=== PATIENT | male | born 1945 | race Caucasian/White ===

== ENCOUNTER 2018-07-05 01:35 | Inpatient (IN) | payer OTHER ==
[~2018-07-05] VITALS: Ht 165.1 cm; Wt 52.6 kg
--- NOTE | 2018-07-05 01:35 | NUR ---
Pt placed in bed 4 by EMS.
--- NOTE | 2018-07-05 01:40 | NUR ---
PT BIBA C/O HIGH BLOOD PRESSURE. PT STATES HE WAS AT HOME AND FELT LIKE HIS BP WAS HIGH, SOB X3 WEEKS. PT STATES 0/10 PAIN, DENIES CP. DENIES FEVER OR CHILLS. --PT ACTING APPROPRIATLY, SPEAKING IN CLEAR AND COMPLETE SENTENCES. PT ATTATCHED TO BEDSIDE INDUSTRIAL ROOFER HELPER, AND PLACED ON 2L NC. EQUAL HAND LITHOSTRIPPER STRENGTH BL. ADELAIDA SOUSA AWARE OF PT STATUS. WILL CONINTUE TO MONITOR. PMH: HTN Addendum: 07/05/18 at 0205 by [email or web address] PT BIBA C/O HIGH BLOOD PRESSURE. PT STATES HE WAS AT HOME, FELT DIZZY AND THOUGHT HIS BP WAS HIGH, SOB X3 WEEKS. PT STATES 0/10 PAIN, DENIES CP. DENIES FEVER OR CHILLS. --PT ACTING APPROPRIATLY, SPEAKING IN CLEAR AND COMPLETE SENTENCES. PT ATTATCHED TO BEDSIDE INDUSTRIAL ROOFER HELPER, AND PLACED ON 2L NC. EQUAL HAND LITHOSTRIPPER STRENGTH BL. ADELAIDA SOUSA AWARE OF PT STATUS. WILL CONINTUE TO MONITOR. PMH: HTN Addendum: 07/05/18 at 0243 by [email or web address] PT BIBA C/O HIGH BLOOD PRESSURE. PT STATES HE WAS AT HOME, FELT DIZZY AND THOUGHT HIS BP WAS HIGH, SOB X3 WEEKS. PT STATES 0/10 PAIN, DENIES CP. DENIES FEVER OR CHILLS. --PT ACTING APPROPRIATLY, SPEAKING IN CLEAR AND COMPLETE SENTENCES. PT ATTATCHED TO BEDSIDE INDUSTRIAL ROOFER HELPER, AND PLACED ON 2L NC. EQUAL HAND LITHOSTRIPPER STRENGTH BL. ER MD AWARE OF PT STATUS. WILL CONINTUE TO MONITOR. L AC 18G STARTED PRIOR TO ARRIVE, FLUSHED WELL W/O RESISTANCE, SIGHT BENIGN. PMH: HTN
[2018-07-05 01:45] VITALS: BP 225/137
--- NOTE | 2018-07-05 02:32 | NUR ---
Dr. Vega evaluating patient at bedside.
[2018-07-05] MEDS ORDERED: NITROGLYCERIN 2% 1 GM PKT TP ONE (02:35)
[2018-07-05] MEDS ORDERED: METOPROLOL 5 MG/5 ML VIAL IVP ONE (02:35)
[2018-07-05] MEDS ORDERED: ASPIRIN 81 MG TAB.CHEW PO ONE (02:35)
[2018-07-05] MEDS ORDERED: ALBUTEROL 0.083% 2.5 MG/3 ML NEBU INH ONE (02:35)
--- NOTE | 2018-07-05 02:44 | NUR ---
RT AT BEDSIDE FOR BREATHING TX.
[2018-07-05 02:52] LABS: BASOPHILS % (AUTO) 0.4 % (0.0-2.0); EOSINOPHILS # (AUTO) 0.5 K/uL (0-0.4); EOSINOPHILS % (AUTO) 4.1 % (0.0-4.0); HEMATOCRIT 47.6 % (36-52); HEMOGLOBIN 16.4 g/dL (12.0-18.0); LYMPHOCYTES # (AUTO) 1.5 K/uL (2.0-11.5); LYMPHOCYTES % (AUTO) 13.1 % (20.5-51.1); MEAN CORPUSCULAR HEMOGLOBIN 34 pg (27-31); MEAN CORPUSCULAR HGB CONC 35 g/dL (33-37); MONOCYTES # (AUTO) 0.9 K/uL (0.8-1.0); MONOCYTES % (AUTO) 7.6 % (1.7-9.3); NEUTROPHILS # (AUTO) 8.8 K/uL (1.8-7.7); NEUTROPHILS % (AUTO) 74.8 % (42.2-75.2); PLATELET COUNT (AUTO) 159 K/uL (140-450); RED BLOOD CELL COUNT(AUTO) 4.86 MIL/uL (4.20-6.10); RED CELL DISTRIBUTION WIDTH 13.4 % (11.6-13.7); WHITE BLOOD COUNT (AUTO) 11.8 K/uL (4.8-10.8)
--- NOTE | 2018-07-05 03:02 | NUR ---
PT SITTING UP IN BED, ACTING APPROPRIATLY. SPEAKING IN CLEAR AND COMPLETE SENTENCES.
[2018-07-05 03:10] LABS: ALBUMIN 4.1 g/dL (3.4-5.0); ANION GAP 15.9 (8-16); ASPARTATE AMINOTRANSFERASE 22 U/L (15-37); CHLORIDE 104 mmol/L (98-107); CREATININE 0.9 mg/dL (0.7-1.3); GLUCOSE 115 mg/dL (74-106); POTASSIUM 3.9 mmol/L (3.5-5.1); SODIUM SERUM 140 mmol/L (136-145); TOTAL BILIRUBIN 0.6 mg/dL (0.0-1.0); UREA NITROGEN, BLOOD 21 mg/dL (7-18)
[2018-07-05 03:18] LABS: CREATINE KINASE MB 3.6 ng/mL (0-3.6)
--- NOTE | 2018-07-05 03:40 | NUR ---
X-RAY AT BEDSIDE.
--- NOTE | 2018-07-05 04:23 | NUR ---
Dr. Santoro evaluating patient at bedside.
--- NOTE | 2018-07-05 04:25 | NUR ---
PT TAKEN TO CT
[2018-07-05] MEDS: NACL 0.9% 1,000 ML IV SCH ×2 (04:32→22:32)
[2018-07-05] MEDS ORDERED: ACETAMINOPHEN 325 MG TAB PO PRN (04:35)
[2018-07-05] MEDS ORDERED: NITROGLYCERIN 0.4 MG TAB SL PRN (04:35)
[2018-07-05] MEDS ORDERED: ONDANSETRON 4 MG/2 ML VIAL IM/IVP PRN (04:35)
[2018-07-05] MEDS ORDERED: LORazepam 2 MG/ML VIAL IM/IVP PRN (04:35)
[2018-07-05] MEDS ORDERED: HYDROcodone/APAP 5/325 MG 1 TAB TAB PO PRN (04:35)
[2018-07-05] MEDS ORDERED: DOCUSATE SODIUM 100 MG GELCAP PO PRN (04:35)
[2018-07-05] MEDS ORDERED: MORPHINE SULFATE 2 MG/ML SYR IVP PRN (04:35)
--- NOTE | 2018-07-05 04:45 | NUR ---
Patient will be admitted to care of Dr. Portillo. Admited to Tele. Patient went to room 119-B via [facility] by RN and EMT. Patient acting appropriatly at time of transfer. Belongings list completed. Report to DARION Nieto.
[2018-07-05] MEDS ORDERED: ALBUTEROL SULFATE/IPRATROPIU 3 ML SOL IH PRN (04:50)
[2018-07-05 05:00] VITALS: BP 221/123
[2018-07-05] MEDS ORDERED: LORazepam 2 MG/ML VIAL IVP SCH (05:00)
--- NOTE | 2018-07-05 05:00 | NUR ---
RECEIVED BEDSIDE REPORT FROM ER NURSE, TERRELL. PT CAME IN ER BED AND AMBULATED TO [facility] BED. NO SOB OR RESPIRATORY DISTRESS NOTED WITH 5L OXYMIZER. SKIN INTACT, WARM, DRY TO TOUCH. PT AAOX4. ABLE TO AMBULATE WITH ASSIST. DX IS UNSTABLE ANGINA. HX OF HTN AND COPD. BP 221/123 NOTED AND WILL MEDICATE. IV SITE LAC 18G, INTACT, PATENT, AND ASYMPTOMATIC. BED IN LOW POSITION, CALL LIGHT WITHIN REACH. WILL CONTINUE TO MONITOR.
[2018-07-05] MEDS ORDERED: hePARIN / DEXT 5% PREMIX 250 ML IV SCH (05:10)
[2018-07-05] MEDS ORDERED: HEPARIN PER PHARMACY MC PRN ×2 (05:10)
[2018-07-05] MEDS ORDERED: ZOLPIDEM 10 MG TAB PO ONE (05:10)
[2018-07-05] MEDS ORDERED: AZITHROMYCIN 500 MG in DEXTROSE 5% 250 ML IV ONE (05:15)
[2018-07-05] MEDS ORDERED: ZOLPIDEM 10 MG TAB PO SCH (05:30)
[2018-07-05] MEDS ORDERED: METOPROLOL 5 MG/5 ML VIAL IV SCH (05:30)
--- NOTE | 2018-07-05 05:45 | NUR ---
FOUND PATIENT ON 5L/M VIA NASAL CANNULA, SPO2 97%. TOOK CANNULA OFF TO DRAW BLOOD FOR ABG, SPO2 MAINTAINED ABOVE 92%. LEFT PATIENT ON ROOM AIR FOR OVER 5 MINUTES AND SPO2 MAINTAINED AT 93%. PATIENT DOES NOT USE OXYGEN AT HOME. WILL LEAVE PATIENT ON ROOM AIR.
[2018-07-05] MEDS ORDERED: AZITHROMYCIN 500 MG in DEXTROSE 5% 250 ML IV SCH (06:00)
[2018-07-05] MEDS ORDERED: methylPREDNISolone SS 125 MG/2 ML VIAL IVP SCH (06:00)
[2018-07-05] MEDS ORDERED: METOPROLOL 50 MG TAB PO SCH (06:00)
[2018-07-05 06:44] LABS: PROTHROMBIN TIME 10.4 secs (10.8-13.4)
[2018-07-05 06:49] LABS: CHOL/HDL RATIO 4.1 (1-4.5); MAGNESIUM 1.9 mg/dL (1.8-2.4); PHOSPHORUS 3.1 mg/dL (2.5-4.9); THYROID STIMULATING HORMONE 1.93 uIU/mL (0.34-3.74)
--- NOTE | 2018-07-05 07:00 | NUR ---
SCHEDULED MEDS, SOLU MEDROL AND ZITHROMAX NOT GIVEN D/T DR. DOMINGUEZ WANTED TO SEND PT TO RAD FOR CT SCAN FIRST. DR MAE DELAYED MEDS SCHEDULE. WILL ENDORSE MEDS TO DAY SHIFT NURSE.
[2018-07-05] MEDS ORDERED: cloNIDine 0.1 MG TAB PO PRN (07:20)
--- NOTE | 2018-07-05 07:30 | NUR ---
ENDORSED PT TO DAY SHIFT NURSE. PT IN STABLE CONDITION. Addendum: 07/05/18 at 0750 by Mart Nieto RN ALSO ENDORSED DELAYED MED, SOLU MEDROL AND ZITHROMAX TO DAY SHIFT NURSE.
--- NOTE | 2018-07-05 07:31 | NUR ---
RECEIVED BEDSIDE REPORT FROM NIGHT NURSE. PT IS RESTING IN BED AOX4 WITH NO OBVIOUS SIGNS OF DISTRESS. BREATHING IS SYMMETRICAL AND UNLABORED. LEFT ANTECUBITAL IV SITE IS PATENT AND ASYMPTOMATIC INFUSING 60ML/HR OF NORMAL SALINE. PT HAS NO REQUESTS AND ALL SAFETY MEASURES ARE IN PLACE WITH CALL LIGHT WITHIN REACH.
[2018-07-05] MEDS: BUDESONIDE 0.5 MG/2 ML NEBU INH SCH ×2 (07:36→19:59)
--- NOTE | 2018-07-05 07:50 | NUR ---
SPOKE WITH DR DOMINGUEZ AND HE INFORMED ME TO CONTACT HIM IF SYSTOLIC IS GREATER THAN 200 AND TO GIVE PRN CLONIDINE IG SYSTOLIC IS GREATER THAN 180 AND/OR IF DIASTOLIC IS GREATER THAN 100.
[2018-07-05 08:00] VITALS: BP 198/84
[2018-07-05] MEDS: LACTOBACILLUS RHAMNOSUS GG 1 EACH CAP PO SCH (08:14)
[2018-07-05] MEDS: LISINOPRIL 10 MG TAB PO SCH ×2 (08:15→20:12)
[2018-07-05] MEDS: ASPIRIN 81 MG TAB.CHEW PO SCH (08:15)
[2018-07-05] MEDS: NICOTINE TRANSD SYS 21 MG/24 HR PATCH TD SCH (08:16)
--- NOTE | 2018-07-05 08:29 | NUR ---
PATIENT HAS BEEN SCREENED AND CATEGORIZED MODERATE NUTRITION RISK. PATIENT WILL BE SEEN WITHIN 3-5 DAYS OF ADMISSION. 07/07/18[address]
--- NOTE | 2018-07-05 08:30 | NUR ---
ADMINISTERED MEDICATIONS AND STARTED SEPARATE IV LINE FOR HEPARIN. PT TOLERATED WELL AND IS FREE OF OBVIOUS SIGNS OF DISTRESS.
[2018-07-05] MEDS: hePARIN / DEXT 5% PREMIX 250 ML IV SCH ×2 (08:35→16:13)
[2018-07-05] MEDS ORDERED: LISINOPRIL 5 MG TAB PO SCH (09:00)
[2018-07-05] MEDS ORDERED: ATORVASTATIN 80 MG TAB PO SCH (09:00)
[2018-07-05] MEDS: ATORVASTATIN 20 MG TAB PO SCH (09:34)
--- NOTE | 2018-07-05 10:00 | NUR ---
RECHECKED BLOOD PRESSURE WHICH WAS 176/90 THUS NOT REQUIRING PRN CLONIDINE. PT FREE OF SIGNS OF OBVIOUS DISTRESS AND IS RELAXED WITH NO REQUESTS.
[2018-07-05 10:38] LABS: BASOPHILS % (AUTO) 0.3 % (0.0-2.0); EOSINOPHILS # (AUTO) 0.1 K/uL (0-0.4); EOSINOPHILS % (AUTO) 1.4 % (0.0-4.0); HEMATOCRIT 45.3 % (36-52); HEMOGLOBIN 15.6 g/dL (12.0-18.0); LYMPHOCYTES # (AUTO) 0.9 K/uL (2.0-11.5); LYMPHOCYTES % (AUTO) 8.7 % (20.5-51.1); MEAN CORPUSCULAR HEMOGLOBIN 34 pg (27-31); MEAN CORPUSCULAR HGB CONC 35 g/dL (33-37); MEAN CORPUSCULAR VOLUME 98.8 fL (80-94); MONOCYTES # (AUTO) 0.2 K/uL (0.8-1.0); NEUTROPHILS # (AUTO) 9.1 K/uL (1.8-7.7); NEUTROPHILS % (AUTO) 87.6 % (42.2-75.2); PLATELET COUNT (AUTO) 131 K/uL (140-450); RED BLOOD CELL COUNT(AUTO) 4.59 MIL/uL (4.20-6.10); RED CELL DISTRIBUTION WIDTH 13.6 % (11.6-13.7); WHITE BLOOD COUNT (AUTO) 10.3 K/uL (4.8-10.8)
[2018-07-05 10:49] LABS: ANION GAP 16.5 (8-16); CARBON DIOXIDE 23.1 mmol/L (21-32); CHLORIDE 105 mmol/L (98-107); GLUCOSE 242 mg/dL (74-106); POTASSIUM 3.6 mmol/L (3.5-5.1); SODIUM SERUM 141 mmol/L (136-145); UREA NITROGEN, BLOOD 17 mg/dL (7-18)
--- NOTE | 2018-07-05 11:18 | NUR ---
WAS NOTIFIED BY LAB REGARDING PATIENT CRITICAL HIGH TROPONIN AT 0.334. INFORMED DR RAE WHO STATED TO CONTINUE THE HEPARIN DRIP AND CONTINUE TO MONITOR PATIENT FOR SIGNS OF DISTRESS. PT IS CURRENTLY ASYMPTOMATIC WITH HEPARIN ONGOING AT 600 UNITS/HR CURRENTLY.
--- NOTE | 2018-07-05 11:36 | NUR ---
PT IS SLEEPING IN BED WITH BREATHING SYMMETRICAL AND UNLABORED.
[2018-07-05 12:00] VITALS: BP 152/62
[2018-07-05] MEDS: methylPREDNISolone SS 125 MG/2 ML VIAL IVP SCH ×2 (12:29→20:13)
--- NOTE | 2018-07-05 13:16 | NUR ---
PT RESTING IN BED BREATHING SYMMETRICAL AND UNLABORED WITH NO OBVIOUS SIGNS OF DISTRESS.
--- NOTE | 2018-07-05 13:56 | NUR ---
PT IN BED RESTING WITH CARDIOLOGY AT BEDSIDE. PATIENT HAS NO OBVIOUS SIGNS OF DISTRESS AT THIS TIME.
[2018-07-05 16:00] VITALS: BP 180/85
--- NOTE | 2018-07-05 16:18 | NUR ---
WAS CONTACTED BY LAB AT 1603 REGARDING PTT VALUE BEING LOW. ADJUSTED HEPARIN DRIP ACCORDING TO PROTOCOL AND GAVE BOLUS ACCORDING TO PROTOCOL. PT IS AOX4 WITH NO SIGNS OF OBVIOUS DISTRESS WITH BREATHING UNLABORED.
--- NOTE | 2018-07-05 17:10 | NUR ---
PROVIDED PT WITH URINE CATCH CUP AND EXPLAINED TO HIM NEED FOR UA TESTING AND TO URINATE IN THE CUP WHEN ABLE CLEAN CATCH MID STREAM. PT HAS NO QUESTIONS AND IS CURRENTLY FREE OF OBVIOUS SIGNS OF DISTRESS LAYING IN BED WATCHING TV. HE HAS NO OTHER REQUESTS
--- NOTE | 2018-07-05 17:45 | NUR ---
PT URINE SAMPLE COLLECTED AND TAKEN PERSONALLY TO LAB. PT IS FREE OF OBVIOUS SIGNS OF DISTRESS AND HAS NO REQUESTS
[2018-07-05 18:34] LABS: APPEARANCE,URINE CLEAR (CLEAR); BILIRUBIN,URINE NEGATIVE (NEGATIVE); BLOOD, URINE NEGATIVE (NEGATIVE); COLOR,URINE YELLOW (YELLOW); LEUKOCYTE ESTERASE ,URINE NEGATIVE (NEGATIVE); NITRITE, URINE NEGATIVE (NEGATIVE); UGLUCOSE 1+ (NEGATIVE)
[2018-07-05 18:35] LABS: RBC,URINE 0 /HPF (0-5); WBC,URINE 0-5 /HPF (0-5)
[2018-07-05 18:43] LABS: BARBITURATE, URINE NEG. ng/ml (NEG <=200); BENZODIAZEPINE, URINE NEG. ng/mL (NEG <=200); CANNABINOID, URINE NEG. ng/mL (NEG <=50); COCAINE, URINE NEG. ng/mL (NEG <=300); OPIATE, URINE NEG. ng/mL (NEG <=2000); PHENCYCLIDINE SCREEN,URINE NEG. ng/mL (NEG <=25)
--- NOTE | 2018-07-05 19:10 | NUR ---
GAVE BEDSIDE SHIFT REPORT AND REVIEWED POC WITH NIGHT NURSE. PT IN STABLE CONDITION. ALSO ENDORSED 1300 LAB PHONE CALL REGARDING CRITICAL HIGH TROPONIN AT 0.245 Addendum: 07/05/18 at 1917 by Jesus Ying RN CLARIFICATION* [id number] LAB PHONE CALL NOT [phone]
--- NOTE | 2018-07-05 19:11 | NUR ---
REPORT RECEIVED FROM AM NURSE AT BEDSIDE. PT IN STABLE CONDITION. AAOX4. INTRODUCED SELF TO PT. BOARD UPDATED. NO COMPLAINTS OF PAIN. NO SOB. AFEBRILE. IV SITE L AC 18G RUNNING NS@20ML/HR PATENT AND INTACT. R AC 22G RUNNING HEPARIN@800UNITS/HR PATENT AND INTACT. SKIN WARM, DRY, AND INTACT WITH NO OPEN WOUNDS. PT AMBULATORY. BED LOCKED IN LOW POSITION. CALL FLOWERS WITHIN REACH. SAFETY PRECAUTION IN PLACE. ALL NEEDS MET AT THIS TIME.
--- NOTE | 2018-07-05 19:55 | NUR ---
TYL GIVEN FOR HEADACHE. PT TOLERATED WELL.
[2018-07-05 20:00] VITALS: BP 170/82
[2018-07-05] MEDS: METOPROLOL 25 MG TAB PO SCH (20:12)
--- NOTE | 2018-07-05 20:12 | NUR ---
ZESTRIL AND LOPRESSOR GIVEN PO. SOLUMEDROL GIVEN IVP. PT TOLERATED WELL.
--- NOTE | 2018-07-05 21:50 | NUR ---
PT AWAKE AND ALERT WATCHING TV. NO S/S OF DISTRESS NOTED. WILL CONTINUE TO MONITOR.
--- NOTE | 2018-07-05 22:50 | NUR ---
PTT RESULTED@49.9. NO CHANGE IN ORDERS. WILL ORDER NEW PTT FOR 04007/06
[2018-07-05] MEDS: KETOROLAC 15 MG/ML VIAL IVP ONE ×2 (23:17→23:33)
[2018-07-05] MEDS ORDERED: KETOROLAC 10 MG TAB PO PRN (23:35)
--- NOTE | 2018-07-05 23:57 | NUR ---
CATAPRES GIVEN FOR BP OF 187/90 AND HR OF 72. PT TOLERATED WELL. WILL REASSESS@0127. PT STILL HAS COMPLAINTS OF A 5/10 HEADACHE. MD ORDERED TORADOL IVP. PT STATED HE DID NOT WANT IT. MEDICATION WAS ALREADY DRAWN AND WAS WASTED INTO SHARPS CONTAINER.
[2018-07-06] VITALS: BP 187/90
--- NOTE | 2018-07-06 00:05 | NUR ---
ORDERED TORADOL PO. MEDICATION IS NOT AVAILABLE IN THE HOSPITAL.
--- NOTE | 2018-07-06 00:15 | NUR ---
NOTIFIED OF TORADOL PO NOT AVAILABLE AND ORDERED APAP/CAF/BUTAL. SENIOR CONTRACT SPECIALIST NOTIFIED AND SAID WILL GET IT FROM ER.
[2018-07-06] MEDS: KETOROLAC 15 MG/ML VIAL IVP ONE (00:44)
--- NOTE | 2018-07-06 00:44 | NUR ---
TORADOL GIVEN IVP FOR 5/10 HEADACHE. PT TOLERATED WELL.
[2018-07-06] MEDS ORDERED: APAP/BUTAL/CAFF 325/50/40 MG 1 TAB PO SCH (01:00)
--- NOTE | 2018-07-06 01:27 | NUR ---
BP REEVALUATED AT 117/75 AND HR 71. MD NOTIFIED. PT SAYS HEADACHE IS GETTING BETTER.
--- NOTE | 2018-07-06 02:45 | NUR ---
PT SLEEPING COMFORTABLY IN BED. NO S/S OF DISTRESS NOTED. NO COMPLAINTS OF PAIN. NO SOB. AFEBRILE. WILL CONTINUE TO MONITOR.
[2018-07-06 04:00] VITALS: BP 149/69
[2018-07-06] MEDS: methylPREDNISolone SS 125 MG/2 ML VIAL IVP SCH (04:04)
--- NOTE | 2018-07-06 04:04 | NUR ---
SOLUMEDROL GIVEN IVP. PT TOLERATED WELL.
--- NOTE | 2018-07-06 05:26 | NUR ---
PTT RESULTED@42.7. PER PROTOCOL 1500 UNIT HEPARIN BOLUS GIVEN AND INCREASE OF RATE FROM 800 UNITS/HR TO 900 UNITS/HR. WILL PUT IN NEW ORDER FOR NEXT APTT DRAW.
[2018-07-06 05:45] LABS: HEMATOCRIT 42.1 % (36-52); HEMOGLOBIN 14.2 g/dL (12.0-18.0); MEAN CORPUSCULAR HEMOGLOBIN 33 pg (27-31); MEAN CORPUSCULAR HGB CONC 34 g/dL (33-37); MEAN CORPUSCULAR VOLUME 98.3 fL (80-94); PLATELET COUNT (AUTO) 139 K/uL (140-450); RED BLOOD CELL COUNT(AUTO) 4.28 MIL/uL (4.20-6.10); RED CELL DISTRIBUTION WIDTH 13.2 % (11.6-13.7); WHITE BLOOD COUNT (AUTO) 14.7 K/uL (4.8-10.8)
[2018-07-06 06:25] LABS: CREATININE 1.1 mg/dL (0.7-1.3); GLUCOSE 136 mg/dL (74-106); UREA NITROGEN, BLOOD 30 mg/dL (7-18)
[2018-07-06 06:30] LABS: ANION GAP 17.2 (8-16); CARBON DIOXIDE 19.9 mmol/L (21-32); CHLORIDE 104 mmol/L (98-107); MAGNESIUM 1.7 mg/dL (1.8-2.4); PHOSPHORUS 3.5 mg/dL (2.5-4.9); POTASSIUM 4.1 mmol/L (3.5-5.1); SODIUM SERUM 137 mmol/L (136-145)
--- NOTE | 2018-07-06 06:58 | NUR ---
NORVASC GIVEN PO FOR INCREASED BP. PT TOLERATED WELL.
[2018-07-06] MEDS ORDERED: amLODIPine 5 MG TAB PO SCH (07:00)
[2018-07-06] MEDS: BUDESONIDE 0.5 MG/2 ML NEBU INH SCH ×2 (07:16→20:19)
--- NOTE | 2018-07-06 07:20 | NUR ---
REPORT GIVEN TO AM NURSE AT BEDSIDE. PT IN STABLE CONDITION.
--- NOTE | 2018-07-06 07:21 | NUR ---
RECEIVED BEDSIDE REPORT FROM DARION ALONZO. PATIENT ON TELE MONITOR AND STANDARD PRECAUTIONS IN PLACE. PATIENT AAOX4 AND ON ROOM AIR, NO DISTRESS NOTED. PATIENT SKIN INTACT AND AMBULATORY. L AC 18G INFUSING NS AT 20 AND RAC 22G INFUSING HEPARIN AT 900, BOTH IV'S ASYMPTOMATIC PATENT AND INTACT. BED IN LOW POSITION, CALL LIGHT WITHIN REACH, SIDE RAILS X2 UP
[2018-07-06 08:00] VITALS: BP 145/67
[2018-07-06 08:04] LABS: LYMPHOCYTES % (MANUAL) 9 % (20-46); MONOCYTES % (MANUAL) 2 % (5-12)
[2018-07-06] MEDS: LACTOBACILLUS RHAMNOSUS GG 1 EACH CAP PO SCH (09:00)
[2018-07-06] MEDS: ATORVASTATIN 20 MG TAB PO SCH (09:01)
[2018-07-06] MEDS: METOPROLOL 25 MG TAB PO SCH ×2 (09:01→20:09)
[2018-07-06] MEDS: LISINOPRIL 10 MG TAB PO SCH ×2 (09:02→20:08)
[2018-07-06] MEDS: ASPIRIN 81 MG TAB.CHEW PO SCH (09:03)
[2018-07-06] MEDS: HYDROCHLOROTHIAZIDE 25 MG TAB PO SCH (09:03)
[2018-07-06] MEDS: NICOTINE TRANSD SYS 21 MG/24 HR PATCH TD SCH (09:07)
[2018-07-06] MEDS: AZITHROMYCIN 500 MG in DEXTROSE 5% 250 ML IV SCH (09:08)
--- NOTE | 2018-07-06 09:19 | NUR ---
ADMINISTERED SCHEDULED MEDS. PATIENT TOLERATED WELL
--- NOTE | 2018-07-06 11:42 | NUR ---
PATIENT AWAKE, LYING IN BED, ON ROOM AIR, NO DISTRESS NOTED
[2018-07-06 12:00] VITALS: BP 118/54
--- NOTE | 2018-07-06 12:03 | NUR ---
HELD HEPARIN FOR APTT OF >150. CHARGE NURSE AWARE
[2018-07-06] MEDS: methylPREDNISolone SS 40 MG/ML VIAL IVP SCH ×2 (12:04→20:10)
--- NOTE | 2018-07-06 13:00 | NUR ---
RESTARTED HEPARIN DRIP AT 750 PER PROTOCOL
--- NOTE | 2018-07-06 15:05 | NUR ---
PATIENT SPEAKING ON PHONE TO SON, NO COMPLAINTS AT THIS TIME
[2018-07-06 16:00] VITALS: BP 171/78
[2018-07-06] MEDS ORDERED: MAGNESIUM OXIDE 400 MG TAB PO SCH (16:15)
--- NOTE | 2018-07-06 17:14 | NUR ---
PATIENT AWAKE, SITTING IN BED, ON ROOM AIR, NO DISTRESS NOTED
[2018-07-06] MEDS: hePARIN / DEXT 5% PREMIX 250 ML IV SCH (18:15)
--- NOTE | 2018-07-06 19:13 | NUR ---
Gave bedside report to DARION Dominguez for continuity of care. Patient endorsed in stable condition
--- NOTE | 2018-07-06 19:14 | NUR ---
REPORT RECEIVED FROM AM NURSE AT BEDSIDE. PT IN STABLE CONDITION. AAOX4. INTRODUCED SELF TO PT. BOARD UPDATED. NO COMPLAINTS OF PAIN. NO SOB. AFEBRILE. IV SITE L AC 18G RUNNING NS@20ML/HR PATENT AND INTACT. ALSO R AC 22G RUNNING HEPARIN AT 750 UNITS/HR PATENT AND INTACT. SKIN WARM, DRY, AND INTACT WITH NO OPEN WOUNDS. BED LOCKED IN LOW POSITION. CALL FLOWERS WITHIN REACH. SAFETY PRECAUTION IN PLACE. ALL NEEDS MET AT THIS TIME.
[2018-07-06 20:00] VITALS: BP 155/75
--- NOTE | 2018-07-06 20:09 | NUR ---
ZESTRIL AND LOPRESSOR GIVEN FOR HYPERTENSION. SOLUMEDROL GIVEN IVP. PT TOLERATED WELL.
--- NOTE | 2018-07-06 21:45 | NUR ---
PT AWAKE AND ALERT WATCHING TV. NO S/S OF DISTRESS NOTED. WILL CONTINUE TO MONITOR.
--- NOTE | 2018-07-06 23:40 | NUR ---
PT IN BED WATCHING TV. NO S/S OF DISTRESS NOTED. NO COMPLAINTS OF PAIN. NO SOB. AFEBRILE. WILL CONTINUE TO MONITOR.
[2018-07-07] VITALS: BP 156/76
--- NOTE | 2018-07-07 01:00 | NUR ---
RESULTS OF APTT 35.8. PROTOCOL SAYS TO GIVE 1500 UNIT BOLUS AND INCREASE BY 100 UNITS/HR. NEW RATE IS 850 UNITS/HR.
--- NOTE | 2018-07-07 01:02 | NUR ---
1500 UNIT HEPARIN BOLUS GIVEN IVP.
[2018-07-07] MEDS: hePARIN / DEXT 5% PREMIX 250 ML IV SCH ×2 (01:04→12:20)
--- NOTE | 2018-07-07 03:00 | NUR ---
PT SLEEPING COMFORTABLY IN BED BUT AROUSABLE. NO S/S OF DISTRESS NOTED. RESPIRATIONS EVEN, UNLABORED, VISIBLE, AND WNL. WILL CONTINUE TO MONITOR.
[2018-07-07 04:00] VITALS: BP 156/63
[2018-07-07] MEDS: methylPREDNISolone SS 40 MG/ML VIAL IVP SCH (04:18)
[2018-07-07] MEDS: NACL 0.9% 1,000 ML IV SCH (04:18)
--- NOTE | 2018-07-07 04:18 | NUR ---
SOLUMEDROL GIVEN IVP. PT TOLERATED WELL.
--- NOTE | 2018-07-07 05:45 | NUR ---
PT SLEEPING COMFORTABLY IN BED BUT AROUSABLE. NO S/S OF DISTRESS NOTED. NO COMPLAINTS OF PAIN. NO SOB. AFEBRILE. WILL CONTINUE TO MONITOR.
--- NOTE | 2018-07-07 07:17 | NUR ---
REPORT GIVEN TO AM NURSE AT BEDSIDE. PT IN STABLE CONDITION.
--- NOTE | 2018-07-07 07:18 | NUR ---
RECEIVED BEDSIDE REPORT FROM DARION ALONZO. PATIENT ON TELE MONITOR AND STANDARD PRECAUTIONS IN PLACE. PATIENT AAOX4 AND ON ROOM AIR, NO DISTRESS NOTED. SKIN INTACT. PATIENT AMBULATORY AND CONTINENT. IV ON L AC 18G INFUSING NS AT 20 AND R AC 22G INFUSING HEPARIN AT 850, BOTH ASYMPTOMATIC PATENT AND INTACT. BED IN LOW POSITION, CALL LIGHT WITHIN REACH, SIDE RAILS X2 UP
[2018-07-07 08:00] VITALS: BP 174/73
[2018-07-07 08:23] LABS: HEMATOCRIT 41.8 % (36-52); HEMOGLOBIN 14.3 g/dL (12.0-18.0); MEAN CORPUSCULAR HEMOGLOBIN 34 pg (27-31); MEAN CORPUSCULAR HGB CONC 34 g/dL (33-37); RED BLOOD CELL COUNT(AUTO) 4.26 MIL/uL (4.20-6.10); RED CELL DISTRIBUTION WIDTH 13.4 % (11.6-13.7); WHITE BLOOD COUNT (AUTO) 21.1 K/uL (4.8-10.8)
[2018-07-07] MEDS: LACTOBACILLUS RHAMNOSUS GG 1 EACH CAP PO SCH (08:24)
[2018-07-07] MEDS: HYDROCHLOROTHIAZIDE 25 MG TAB PO SCH (08:25)
[2018-07-07] MEDS: ASPIRIN 81 MG TAB.CHEW PO SCH (08:25)
[2018-07-07] MEDS: METOPROLOL 25 MG TAB PO SCH ×2 (08:26→20:43)
[2018-07-07] MEDS: ATORVASTATIN 20 MG TAB PO SCH (08:26)
[2018-07-07] MEDS: NICOTINE TRANSD SYS 21 MG/24 HR PATCH TD SCH (08:26)
[2018-07-07] MEDS: amLODIPine 5 MG TAB PO SCH (08:26)
[2018-07-07] MEDS: AZITHROMYCIN 500 MG in DEXTROSE 5% 250 ML IV SCH (08:27)
[2018-07-07 08:37] LABS: ANION GAP 13.9 (8-16); CARBON DIOXIDE 22.7 mmol/L (21-32); CHLORIDE 107 mmol/L (98-107); GLUCOSE 125 mg/dL (74-106); POTASSIUM 3.6 mmol/L (3.5-5.1); SODIUM SERUM 140 mmol/L (136-145); UREA NITROGEN, BLOOD 37 mg/dL (7-18)
--- NOTE | 2018-07-07 08:37 | NUR ---
ADMINISTERED SCHEDULED MEDS. PATIENT TOLERATED WELL
[2018-07-07] MEDS: LISINOPRIL 10 MG TAB PO SCH (08:40)
[2018-07-07 08:41] LABS: MAGNESIUM 2.2 mg/dL (1.8-2.4); PHOSPHORUS 3.3 mg/dL (2.5-4.9)
[2018-07-07 08:58] LABS: LYMPHOCYTES % (MANUAL) 4 % (20-46); MONOCYTES % (MANUAL) 3 % (5-12)
[2018-07-07 08:59] LABS: PLATELET COUNT (AUTO) 139 K/uL (140-450)
--- NOTE | 2018-07-07 10:29 | NUR ---
PATIENT SLEEPING, ON ROOM AIR, NO S/S OF RESPIRATORY DISTRESS
--- NOTE | 2018-07-07 11:46 | NUR ---
ADMINISTERED HEPARIN BOLUS PER PROTOCOL AND ADJUSTED RATE TO 950 UNITS/HR PER PROTOCOL
[2018-07-07 12:00] VITALS: BP 118/64
--- NOTE | 2018-07-07 12:41 | NUR ---
PATIENT AMBULATED TO RESTROOM
--- NOTE | 2018-07-07 14:43 | NUR ---
INFORMED PATIENT THAT HE WILL HAVE US OF KIDNEYS AND THAT HE CANNOT HAVE ANYTHING TO EAT UNTIL THEN. PATIENT VERBALIZED UNDERSTANDING
[2018-07-07 16:00] VITALS: BP 175/88
--- NOTE | 2018-07-07 17:41 | NUR ---
PATIENT WATCHING TV, ON ROOM AIR, NO DISTRESS NOTED
--- NOTE | 2018-07-07 18:11 | NUR ---
LAB CALLED FOR PTT 51.6. PER PROTOCOL, NO CHANGE IN HEPARIN DRIP
--- NOTE | 2018-07-07 19:10 | NUR ---
GAVE BEDSIDE REPORT TO DARION BONILLA. PATIENT ENDORSED IN STABLE CONDITION
--- NOTE | 2018-07-07 19:12 | NUR ---
RECEIVED BEDSIDE REPORT FROM AM NURSE PATIENT ON TELE MONITOR. PATIENT AAOX4 AND ON ROOM AIR, NO DISTRESS NOTED. SKIN INTACT. PATIENT AMBULATORY, WITH SB ASSIST AND CONTINENT. IV ON L AC 18G SL AND R AC 22G INFUSING HEPARIN AT 950, BOTH ASYMPTOMATIC PATENT AND INTACT. BED IN LOW POSITION, CALL LIGHT WITHIN REACH, SIDE RAILS X2 UP Addendum: 07/07/18 at 2222 by Mami Cheema RN AMEND TO - L AC G 18 AT 20ML/HR
[2018-07-07] MEDS: BUDESONIDE 0.5 MG/2 ML NEBU INH SCH (19:22)
--- NOTE | 2018-07-07 19:30 | NUR ---
CHECKED ON THE HEPARIN DRIP R AC G 22, CLEANED THE IV SITE, NO CBLEEDING NOTED INTACT HEPARIN STILL INFUSING AT 950
--- NOTE | 2018-07-07 19:31 | NUR ---
RECEIVED PATIENT ON ROOM AIR, PULSE OX SAT 96%. SCHEDULED BREATHING TREATMENT ADMINISTERED. TOLERATED TX WELL, NO ADVERSE SIDE EFFECTS. ORAL RINSE DONE POST TX. NO RESPIRATORY DISTRESS NOTED AT THIS TIME. WILL CONTINUE TO MONITOR.
--- NOTE | 2018-07-07 19:36 | NUR ---
D/C HEPARIN DRIP PER 'S ORDER Addendum: 07/07/18 at 2312 by Mami Cheema RN AMEND AND INCLUDE THIS INFO" APTT 51.6 hIGH
[2018-07-07 20:00] VITALS: BP 159/80
[2018-07-07] MEDS: LISINOPRIL 20 MG TAB PO SCH (20:46)
--- NOTE | 2018-07-07 22:10 | NUR ---
PT ON HIGH BACK REST WATCHING TV, NO COMPLAINTS AT THIS TIME.
[2018-07-08] VITALS: BP 152/72
--- NOTE | 2018-07-08 03:00 | NUR ---
PT WATCHING TV,CALM, NO COMPLAINTS AT THIS TIME. NO SOB; NO CHEST PAIN
[2018-07-08 04:00] VITALS: BP 140/52
--- NOTE | 2018-07-08 04:00 | NUR ---
PT SLEEPING NOW, COMFORTABLE SUPINE IN HIS BED
[2018-07-08] MEDS: NACL 0.9% 1,000 ML IV SCH (04:32)
--- NOTE | 2018-07-08 07:15 | NUR ---
ENDORSED TO NEXT SHIFT WITH STABLE VITAL SIGNS, PT AMBULATING TO WASH HIMSELF, STEADY GAIT W/ STANDBY ASSIST.
--- NOTE | 2018-07-08 07:16 | NUR ---
RECEIVED ENDORSEMENT FROM SENSOR TECHNICIAN NURSE. PATIENT IS AAOX4. RESPIRATIONS ARE EVEN AND UNLABORED ON ROOM AIR. LEFT AC 18 G IV INTACT, PATENT, AND INFUSING IVF. RIGHT AC 22 G INTACT AND SL. PATIENT DENIES PAIN AT THIS TIME. PLAN OF CARE WAS REVIEWED WITH PATIENT. PATIENT VERBALIZED UNDERSTANDING. SAFETY MEASURES IN PLACE, CALL LIGHT WITHIN REACH.
[2018-07-08 08:00] VITALS: BP 174/76
[2018-07-08] MEDS: BUDESONIDE 0.5 MG/2 ML NEBU INH SCH (08:40)
[2018-07-08] MEDS ORDERED: hydrALAZINE 25 MG TAB PO SCH (09:00)
[2018-07-08] MEDS ORDERED: HYDROCHLOROTHIAZIDE 25 MG TAB PO SCH (09:00)
[2018-07-08 09:26] LABS: HEMATOCRIT 43.1 % (36-52); HEMOGLOBIN 14.5 g/dL (12.0-18.0); LYMPHOCYTES # (AUTO) 1.2 K/uL (2.0-11.5); LYMPHOCYTES % (AUTO) 6.8 % (20.5-51.1); MEAN CORPUSCULAR HEMOGLOBIN 33 pg (27-31); MEAN CORPUSCULAR HGB CONC 34 g/dL (33-37); MEAN CORPUSCULAR VOLUME 98.6 fL (80-94); MONOCYTES # (AUTO) 0.8 K/uL (0.8-1.0); MONOCYTES % (AUTO) 4.6 % (1.7-9.3); NEUTROPHILS # (AUTO) 15.8 K/uL (1.8-7.7); NEUTROPHILS % (AUTO) 88.6 % (42.2-75.2); RED BLOOD CELL COUNT(AUTO) 4.37 MIL/uL (4.20-6.10); RED CELL DISTRIBUTION WIDTH 13.4 % (11.6-13.7); WHITE BLOOD COUNT (AUTO) 17.8 K/uL (4.8-10.8)
[2018-07-08 09:36] LABS: ANION GAP 14.3 (8-16); CARBON DIOXIDE 22.6 mmol/L (21-32); CHLORIDE 105 mmol/L (98-107); GLUCOSE 171 mg/dL (74-106); SODIUM SERUM 139 mmol/L (136-145); UREA NITROGEN, BLOOD 34 mg/dL (7-18)
[2018-07-08 09:37] LABS: PLATELET COUNT (AUTO) 139 K/uL (140-450)
[2018-07-08 09:38] LABS: POTASSIUM 2.9 mmol/L (3.5-5.1)
[2018-07-08] MEDS: LACTOBACILLUS RHAMNOSUS GG 1 EACH CAP PO SCH (09:42)
[2018-07-08] MEDS: LISINOPRIL 20 MG TAB PO SCH (09:43)
[2018-07-08] MEDS: ATORVASTATIN 20 MG TAB PO SCH (09:43)
[2018-07-08] MEDS: METOPROLOL 25 MG TAB PO SCH (09:44)
[2018-07-08] MEDS: ASPIRIN 81 MG TAB.CHEW PO SCH (09:44)
[2018-07-08] MEDS: amLODIPine 5 MG TAB PO SCH (09:45)
[2018-07-08] MEDS: NICOTINE TRANSD SYS 21 MG/24 HR PATCH TD SCH (09:45)
[2018-07-08] MEDS: AZITHROMYCIN 500 MG in DEXTROSE 5% 250 ML IV SCH (09:46)
--- NOTE | 2018-07-08 10:03 | NUR ---
ADMINISTERED SCHEDULED MEDICATIONS. PATIENT DENIES ANY PAIN AT THIS TIME. NO OTHER NEEDS NOTED. DR. DE LA ROSA PRESENT AT BEDSIDE. WILL CONTINUE TO MONITOR.
[2018-07-08] MEDS ORDERED: POTASSIUM CHLORIDE 40 MEQ, LIDOCAINE MPF 1% - 5 mL VIAL 25 MG in NACL 0.9% 250 ML IV SCH (10:30)
[2018-07-08] MEDS ORDERED: AMLO5TAB6 PO (10:36)
[2018-07-08] MEDS ORDERED: SPIMDI INH (10:37)
[2018-07-08] MEDS ORDERED: ASPI81CT95 PO (10:37)
[2018-07-08] MEDS ORDERED: NICO-532 TD (10:37)
[2018-07-08] MEDS ORDERED: ALBU0.0912 IH (10:37)
[2018-07-08] MEDS ORDERED: PUL.5N INH (10:37)
[2018-07-08] MEDS ORDERED: LISI-420 PO (10:37)
[2018-07-08] MEDS ORDERED: METO25TA PO (10:37)
[2018-07-08] MEDS ORDERED: ATOR20TA40 PO (10:37)
[2018-07-08] MEDS ORDERED: SERMDI INH (10:37)
[2018-07-08] MEDS ORDERED: POTASSIUM CHLORIDE 10 MEQ TABER PO SCH (11:00)
--- NOTE | 2018-07-08 11:30 | NUR ---
ADMINISTERED SCHEDULED MEDCIATIONS. PATIENT IS RESTING IN BED. DENIES ANY PAIN AT THIS TIME. WILL CONTINUE TO MONITOR.
[2018-07-08 12:00] VITALS: BP 139/57
[2018-07-08 12:20] LABS: MAGNESIUM 2.1 mg/dL (1.8-2.4); PHOSPHORUS 2.8 mg/dL (2.5-4.9)
--- NOTE | 2018-07-08 13:33 | NUR ---
PATIENT IS RESTING IN BED, DENIES ANY PAIN. NO OTHER NEEDS AT THIS TIME.
--- NOTE | 2018-07-08 14:25 | NUR ---
PATIENT SLEEPING, EASILY AROUSABLE. DENIES PAIN AT THIS TIME. NO OTHER NEEDS AT THIS TIME.
--- NOTE | 2018-07-08 14:27 | NUR ---
CARDIAC-TLC DIET EDUCATION WAS PROVIDED TO THE PT, AND PT ACCEPTED.
[2018-07-08 15:30] LABS: ANION GAP 9.4 (8-16); CARBON DIOXIDE 28.3 mmol/L (21-32); CHLORIDE 106 mmol/L (98-107); GLUCOSE 102 mg/dL (74-106); POTASSIUM 4.7 mmol/L (3.5-5.1); SODIUM SERUM 139 mmol/L (136-145); UREA NITROGEN, BLOOD 36 mg/dL (7-18)
[2018-07-08 16:00] VITALS: BP 153/65
--- NOTE | 2018-07-08 16:00 | NUR ---
BP IS SLIGHTLY ELEVATED, MD AWARE.
--- NOTE | 2018-07-08 16:55 | NUR ---
DISCHARGE INSTRUCTIONS PROVIDED TO PATIENT IN PREFERRED LANGUAGE OF YI. INSTRUCTIONS ON FOLLOW-UP WITH [facility] PCP, NEW/CHANGED MEDICATION REGIMEN AND SIDE EFFECTS, AND DIET REGIMEN. ANSWERED ALL OF PATIENT'S QUESTIONS REGARDING DISCHARGE. PATIENT VERBALIZED COMPLETE UNDERSTANDING. IV SITE REMOVED AND ID BANDS REMOVED. PATIENT TO GET DRESSED AND LEAVE VIA [facility] VOUCHER. [employer] CALLED AND WILL ARRIVE TO CONTROL EQUIPMENT ELECTRICIAN PATIENT IN 10-15 MINUTES. PATIENT TO GET DRESSED AT THIS TIME. WILL CONTINUE TO MONITOR.
--- NOTE | 2018-07-08 17:45 | NUR ---
PATIENT LEFT THE UNIT WITH WALKER. PATIENT LEFT WITH ALL BELONGINGS. PATIENT WAS ESCORTED TO [facility] WAITING OUTSIDE. PATIENT IS STABLE.
== END 2018-07-08 17:45 | disposition home or self-care (01) | DRG 280 ==
LOC: MED 01:35 → MTU 04:13
PROVIDERS: ADMIT General Practice; ATTEND General Practice
DX: I21.A1 Myocardial infarction type 2 (principal); J96.90 Respiratory failure, unspecified, unspecified whether with hypoxia or hypercapnia; I50.43 Acute on chronic combined systolic (congestive) and diastolic (congestive) heart failure; J44.1 Chronic obstructive pulmonary disease with (acute) exacerbation; I16.0 Hypertensive urgency; R79.89 Other specified abnormal findings of blood chemistry; I10 Essential (primary) hypertension; E78.5 Hyperlipidemia, unspecified; F17.210 Nicotine dependence, cigarettes, uncomplicated; Z82.49 Family history of ischemic heart disease and other diseases of the circulatory system; Z60.2 Problems related to living alone; D72.829 Elevated white blood cell count, unspecified; I25.10 Atherosclerotic heart disease of native coronary artery without angina pectoris; R91.1 Solitary pulmonary nodule; E83.42 Hypomagnesemia
CPT/HCPCS: 36415; 36600; 70450; 71045; 71260; 80048; 80053; 80305; 81001; 82550; 82553; 82803; 83036; 83690; 83735; 83880; 84100; 84134; 84443; 84484; 85025; 85379; 85610; 85730; 87040; 87081; 93005; 93970; 93976; 94640; 96374; 99285; J0456; J1644; J1885; J2001; J2060; J2920; J2930; J3480; J3490; J7030; J7060; J7613; J7620; J7626; Q0092; Q9967